=== PATIENT | female | born 1970 | race Caucasian/White ===

== ENCOUNTER → 2021-08-21 | Day surgery (SDC) | payer OTHER ==
[~2021-08-21] VITALS: Ht 172.7 cm; Wt 91.6 kg
[~2021-08-21] MED LIST: AMLODIPINE BESYL5 MG PO; AMPHETAMINE SAL10 MG PO; BRIN20TA PO; COZAAR100 MG PO; MUPIROCIN 2%22 GM; PERCOCET 5-3251 EACH PO; REXULTI0.5 MG PO; SYNTHROID200 MCG PO; VITAMIN D310 MC4 PO
[2021-08-21 07:59] LABS: BUN/CREAT RATIO (CALC) 12.3 RATIO; CREATININE 0.65 mg/dL (0.51-0.95); POTASSIUM 3.8 mmol/L (3.5-5.1)
== END | disposition home or self-care (01) ==
LOC: FAS 06:49
PROVIDERS: Anesthesiology
DX: C50.911 Malignant neoplasm of unspecified site of right female breast (principal); K21.9 Gastro-esophageal reflux disease without esophagitis; I10 Essential (primary) hypertension; F17.200 Nicotine dependence, unspecified, uncomplicated
CPT/HCPCS: 36415; 71045; 76000; 80048; 93005; C1788; J0690; J1100; J1644; J2250; J2405; J2704; J3010; J7120